=== PATIENT | male | born 1990 | race Caucasian/White ===

== ENCOUNTER 2018-03-02 21:14 | Emergency (ER) | payer OTHER ==
[2018-03-02] MEDS: LIDOCAINE 2%/EPI MPF (SDV) 20 ML VIAL INJ (22:50)
[2018-03-02] MEDS: DIPHTH/TET/ACEL PERTUSS (ADULT) 0.5 ML VIAL IM* (22:54)
== END 2018-03-02 23:13 | disposition home or self-care (01) ==
LOC: FTE 21:14
DX: S81.012A Laceration without foreign body, left knee, initial encounter (principal); W10.0XXA Fall (on)(from) escalator, initial encounter; Y92.9 Unspecified place or not applicable; Z23 Encounter for immunization
CPT/HCPCS: 12002; 90471; 90715; 99283-25